=== PATIENT | male | born 1950 | race Caucasian/White ===

== ENCOUNTER 2019-10-04 21:37 | Emergency (ER) | payer MEDICARE, MEDICAID ==
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
[2019-10-05] MEDS ORDERED: Insulin Regular, Human 100 Units/ML 3 ML Vial IV ONE (00:40)
[2019-10-05] MEDS ORDERED: 50% Dextrose in Water 50 ML Syringe IVPUSH ONE (00:41)
[2019-10-05] MEDS ORDERED: Sodium Polystyrene Sulfonate 15 GM/60 ML Susp 60 ML Bot PO ONE (00:42)
[2019-10-05] MEDS ORDERED: cefTRIAXone 1 GM in Sodium Chloride 0.9% 100 ML IV ONE (00:43)
[2019-10-05] MEDS ORDERED: SODIUM CHLORIDE 0.9% IV ONE (00:45)
[2019-10-05] MEDS ORDERED: GENTAMICIN IV ONE (00:45)
[2019-10-05] MEDS ORDERED: Sodium Chloride 0.9% 100 ML ONE (01:55)
[2019-10-05] MEDS ORDERED: Gentamicin 40 MG/ML 2 ML Vial ONE ×2 (01:55→03:02)
--- NOTE | 2019-10-05 07:14 | CR ---
Chest: Portable view of the chest was obtained. Comparison: Prior chest x-ray of 02/11/18. Heart is mildly enlarged. Upper mediastinum is normal. Pulmonary vessels show slight vascular congestion, this may be chronic. No acute parenchymal process is appreciated. Degenerative endplate spurring is noted within the spine. Impression: 1. Cardiomegaly and mild pulmonary vascular congestion, this may be chronic. 2. Nothing acute is otherwise appreciated on portable chest x-ray. Diagnostic code #2 This report was dictated in MDT
== END 2019-10-05 03:25 ==
LOC: SUPCPDRO 21:37 → JD.ED 21:37
DX: E87.5 Hyperkalemia (principal); N39.0 Urinary tract infection, site not specified; I10 Essential (primary) hypertension; Z20.828 Contact with and (suspected) exposure to other viral communicable diseases; Z79.899 Other long term (current) drug therapy
CPT/HCPCS: 36415; 71045; 80053; 81001; 85025; 87040; 87086; 87088; 87186; 93005; 96365; 96367; 96375; 99285; A9270; J0696; J1580; J1815; J7050; U0002; 93010; 99284

== ENCOUNTER 2019-10-09 16:40 | Emergency (ER) | payer MEDICARE ==
[2019-10-09] MEDS ORDERED: Sodium Chloride 0.9% 10 ML Syringe FLUSH PRN (17:03)
[2019-10-09] MEDS ORDERED: Linezolid 600 MG in Premix Bag 1 BAG IV ONE (19:57)
--- NOTE | 2019-10-09 20:26 | CR ---
Chest: Portable view of the chest was obtained. Comparison: Prior chest x-ray of 10/04/19. Findings: Heart size and mediastinum are within normal limits for portable technique. Lung markings are slightly increased within the right lung base. Difficult to exclude mild focal bronchitis. Lungs otherwise are clear. Scoliosis is noted within the spine. No acute osseous finding is seen. Impression: 1. Possible mild right lower lobe bronchitis. 2. Other findings believed to be stable. Diagnostic code #3 This report was dictated in MDT
--- NOTE | 2019-10-09 21:07 | EDM.PDOC ---
ED HPI GENERAL MEDICAL PROBLEM - General Chief Complaint: Genitourinary Problem Stated Complaint: FEVER AND ABNORMAL LABS Time Seen by Provider: 10/09/19 17:07 Source of Information: Reports: Patient History Limitations: Reports: No Limitations - History of Present Illness INITIAL COMMENTS - FREE TEXT/NARRATIVE: Patient is a 69-year-old male sent by his primary care provider with complaints of ongoing fever and an elevated white count. Patient was seen in our emergency department on 03 October for fever. He was diagnosed with urinary tract infection secondary to chronic indwelling Fuentes catheter. He was discharged back to the half-way facility with orders for intravenous gentamicin and Rocephin. He has been receiving these medications as prescribed. Repeat CBC was done today and showed his WBCs have increased since treatment began. Patient also continues to run low-grade fevers. Primary care provider reports a temperature of 100.0. On triage temperature was 99.0. Patient is in end-stage renal failure with chronic hemodialysis. He did dialyze today. He states that he is feeling well and has no complaints. He does verbalize that he has continued to run fevers at the half-way facility. Denies any nausea, vomiting, or chills. - Related Data Allergies Allergy/AdvReac Type Severity Reaction Status Date / Time No Known Allergies Allergy Verified 10/09/19 17:09 Home Meds: Home Meds Sodium Bicarbonate 650 mg PO BID 02/11/18 [History] amLODIPine Besylate [Amlodipine Besylate] 5 mg PO DAILY 02/11/18 [History] Melatonin 3 mg PO BEDTIME 10/04/19 [History] Nicotine [Nicoderm CQ] 14 mg TOP DAILY 10/04/19 [History] Sertraline [Zoloft] 25 mg PO DAILY 10/04/19 [History] Sevelamer Carbonate [Renvela] 2 tab PO TID 10/04/19 [History] Acetaminophen 650 mg PO 6XDAY PRN 10/09/19 [History] Calcium Carbonate [Antacid] 500 mg PO QID PRN 10/09/19 [History] Ipratropium/Albuterol Sulfate [Iprat-Albut 0.5-3(2.5) mg/3 ml] 1 ampule INH QID PRN 10/09/19 [History] Sennosides/Docusate Sodium [Senna-Docusate Sodium Tablet] 2 tab PO BID PRN 10/09/19 [History] Past Medical History HEENT History: Reports: Impaired Vision Other HEENT History: reading glasses. Cardiovascular History: Reports: Hypertension Genitourinary History: Reports: Dialysis, Retention, Urinary, Other (See Below) Other Genitourinary History: pt has indwelling fuentes catheter. 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 - Infectious Disease History Infectious Disease History: Reports: Chicken Pox, Measles - Past Surgical History Head Surgeries/Procedures: Reports: None HEENT Surgical History: Reports: Tonsillectomy Cardiovascular Surgical History: Reports: Vascular Surgery Male Surgical History: Reports: TURBT-Transurethral Resection of Bladder Tumor Musculoskeletal Surgical History: Reports: Amputation Social & Family History - Family History Family Medical History: Noncontributory - Tobacco Use Smoking Status *Q: Current Some Day Smoker Years of Tobacco use: 56 Packs/Tins Daily: 1 Used Tobacco, but Quit: No - Caffeine Use Caffeine Use: Reports: Coffee - Recreational Drug Use Recreational Drug Use: No - Living Situation & Occupation Living situation: Reports: , with Family (Son + 3 grandchildren) Occupation: Retired ED ROS GENERAL - Review of Systems Review Of Systems: See Below Constitutional: Reports: Fever. Denies: Chills, Weakness, Decreased Appetite HEENT: Reports: No Symptoms Respiratory: Reports: No Symptoms. Denies: Shortness of Breath, Cough Cardiovascular: Reports: No Symptoms Endocrine: Reports: No Symptoms GI/Abdominal: Reports: No Symptoms. Denies: Abdominal Pain, Nausea, Vomiting : Reports: No Symptoms Musculoskeletal: Reports: No Symptoms Skin: Reports: No Symptoms Neurological: Reports: No Symptoms. Denies: Confusion, Dizziness, Headache Psychiatric: Reports: No Symptoms Hematologic/Lymphatic: Reports: No Symptoms Immunologic: Reports: No Symptoms ED EXAM, RENAL/ - Physical Exam Exam: See Below Exam Limited By: No Limitations General Appearance: Alert, WD/WN, No Apparent Distress Respiratory/Chest: No Respiratory Distress, No Accessory Muscle Use, Chest Non- Tender, Rhonchi (Scattered throughout left) Cardiovascular: Normal Peripheral Pulses, Regular Rate, Rhythm, No Edema, No Gallop, No JVD, No Murmur, No Rub (Male) Exam: Other (Chronic indwelling Fuentes catheter. No redness or drainage from the penis.) Extremities: Other (Left above-knee the elbow amputation. Dialysis fistula to left upper arm.) Neurological: Alert, Oriented, CN II-XII Intact, Normal Cognition, Normal Gait, Normal Reflexes, No Motor/Sensory Deficits Psychiatric: Normal Affect, Normal Mood Skin Exam: Warm, Dry, Intact, Normal Color, No Rash Course - Vital Signs Last Recorded V/S: Last Vital Signs Temp 99 F 10/09/19 17:03 Pulse 78 10/09/19 17:03 Resp 20 10/09/19 17:03 BP 199/87 H 10/09/19 17:03 Pulse Ox 93 L 10/09/19 17:03 - Orders/Labs/Meds Labs: Laboratory Tests 10/09/19 10/09/19 10/09/19 Range/Units 17:38 18:00 18:00 WBC 25.16 H (4.23-9.07) K/mm3 RBC 3.08 L (4.63-6.08) M/mm3 Hgb 9.3 L (13.7-17.5) gm/dl Hct 28.9 L (40.1-51.0) % MCV 93.8 H (79.0-92.2) fl MCH 30.2 (25.7-32.2) pg MCHC 32.2 (32.2-35.5) g/dl RDW Std Deviation 45.7 H (35.1-43.9) fL Plt Count 261 (163-337) K/mm3 MPV 10.2 (9.4-12.3) fl Neut % (Auto) 86.8 H (34.0-67.9) % Lymph % (Auto) 6.0 L (21.8-53.1) % [place] % (Auto) 6.5 (5.3-12.2) % Eos % (Auto) 0 L (0.8-7.0) Baso % (Auto) 0.2 (0.1-1.2) % Neut # (Auto) 21.83 H (1.78-5.38) K/mm3 Lymph # (Auto) 1.52 (1.32-3.57) K/mm3 [place] # (Auto) 1.63 H (0.30-0.82) K/mm3 Eos # (Auto) 0.00 L (0.04-0.54) K/mm3 Baso # (Auto) 0.06 (0.01-0.08) K/mm3 Manual Slide Review Abnormal smear Sodium 141 (136-145) mEq/L Potassium 3.2 L D (3.5-5.1) mEq/L Chloride 101 (98-107) mEq/L Carbon Dioxide 32 (21-32) mEq/L Anion Gap 11.2 (5-15) BUN 17 D (7-18) mg/dL Creatinine 3.2 H D (0.7-1.3) mg/dL Est Cr Clr Drug Dosing 19.70 mL/min Estimated GFR (MDRD) 19 (>60) mL/min BUN/Creatinine Ratio 5.3 L (14-18) Glucose 108 (83-115) mg/dL Lactic Acid (0.4-2.0) mmol/L Calcium 8.9 (8.5-10.1) mg/dL Total Bilirubin 0.4 (0.2-1.0) mg/dL AST 7 L (15-37) U/L ALT 10 L (16-63) U/L Alkaline Phosphatase 96 (46-116) U/L C-Reactive Protein 23.1 H* (<1.0) mg/dL Total Protein 6.5 (6.4-8.2) g/dl Albumin 2.3 L (3.4-5.0) g/dl Globulin 4.2 gm/dL Albumin/Globulin Ratio 0.6 L (1-2) Urine Color (Yellow) Urine Appearance (Clear) Urine pH (5.0-8.0) Ur Specific [place] (1.005-1.030) Urine Protein (Negative) Urine Glucose (UA) (Negative) Urine Ketones (Negative) Urine Occult Blood (Negative) Urine Nitrite (Negative) Urine Bilirubin (Negative) Urine Urobilinogen (0.2-1.0) Ur Leukocyte Esterase (Negative) Urine RBC (0-5) /hpf Urine WBC (0-5) /hpf Ur Squamous Epith Cells (0-5) /hpf Urine Bacteria (FEW) /hpf Urine Mucus (FEW) /hpf SARS Virus RNA (PCR) Negative (NEGATIVE) 10/09/19 10/09/19 Range/Units 18:00 19:14 WBC (4.23-9.07) K/mm3 RBC (4.63-6.08) M/mm3 Hgb (13.7-17.5) gm/dl Hct (40.1-51.0) % MCV (79.0-92.2) fl MCH (25.7-32.2) pg MCHC (32.2-35.5) g/dl RDW Std Deviation (35.1-43.9) fL Plt Count (163-337) K/mm3 MPV (9.4-12.3) fl Neut % (Auto) (34.0-67.9) % Lymph % (Auto) (21.8-53.1) % [place] % (Auto) (5.3-12.2) % Eos % (Auto) (0.8-7.0) Baso % (Auto) (0.1-1.2) % Neut # (Auto) (1.78-5.38) K/mm3 Lymph # (Auto) (1.32-3.57) K/mm3 [place] # (Auto) (0.30-0.82) K/mm3 Eos # (Auto) (0.04-0.54) K/mm3 Baso # (Auto) (0.01-0.08) K/mm3 Manual Slide Review Sodium (136-145) mEq/L Potassium (3.5-5.1) mEq/L Chloride (98-107) mEq/L Carbon Dioxide (21-32) mEq/L Anion Gap (5-15) BUN (7-18) mg/dL Creatinine (0.7-1.3) mg/dL Est Cr Clr Drug Dosing mL/min Estimated GFR (MDRD) (>60) mL/min BUN/Creatinine Ratio (14-18) Glucose (83-115) mg/dL Lactic Acid 1.2 (0.4-2.0) mmol/L Calcium (8.5-10.1) mg/dL Total Bilirubin (0.2-1.0) mg/dL AST (15-37) U/L ALT (16-63) U/L Alkaline Phosphatase (46-116) U/L C-Reactive Protein (<1.0) mg/dL Total Protein (6.4-8.2) g/dl Albumin (3.4-5.0) g/dl Globulin gm/dL Albumin/Globulin Ratio (1-2) Urine Color Yellow (Yellow) Urine Appearance Cloudy H (Clear) Urine pH >=9.0 H (5.0-8.0) Ur Specific [place] 1.015 (1.005-1.030) Urine Protein 3+ H (Negative) Urine Glucose (UA) Trace H (Negative) Urine Ketones Negative (Negative) Urine Occult Blood 3+ H (Negative) Urine Nitrite Negative (Negative) Urine Bilirubin Negative (Negative) Urine Urobilinogen 0.2 (0.2-1.0) Ur Leukocyte Esterase Trace H (Negative) Urine RBC 40-50 H (0-5) /hpf Urine WBC 5-10 H (0-5) /hpf Ur Squamous Epith Cells 0-5 (0-5) /hpf Urine Bacteria Rare (FEW) /hpf Urine Mucus Rare (FEW) /hpf SARS Virus RNA (PCR) (NEGATIVE) Meds: Medications Discontinued Medications Generic Name Dose Route Start Last Admin Trade Name Omarq PRN Reason Stop Dose Admin Acetaminophen 650 mg 10/09/19 21:55 Tylenol PO 10/09/19 21:56 NOW ONE Acetaminophen Confirm 10/09/19 21:57 Tylenol Administered 10/09/19 21:58 Dose 325 mg .ROUTE .STK-MED ONE Linezolid 600 mg/ Premix 300 mls @ 300 mls/hr 10/09/19 19:57 10/09/19 20:28 IV 10/09/19 20:56 300 mls/hr ONETIME ONE Administration Potassium Chloride 40 meq 10/09/19 21:08 10/09/19 21:39 Klor-Con M20 PO 10/09/19 21:09 40 meq ONETIME ONE Administration Sodium Chloride 10 ml 10/09/19 17:03 10/09/19 17:36 Saline Flush FLUSH 10 ml ASDIRECTED PRN Administration Keep Vein Open - Re-Assessments/Exams Free Text/Narrative Re-Assessment/Exam: 10/09/19 21:11 hemotology was significant for WBC elevated at 25.16. This is up from 22.7 on 03 October. Hemoglobin found to be low at 9.3, potassium low at 3.2, creatinine elevated at 3.2, CRP elevated at 23.1. Urinalysis difficult for a pH greater than 9.0, 3+ protein, trace glucose, 3+ occult blood, trace leukocyte esterase, 40-50 RBCs, 5-10 WBCs coronavirus screen was found to be negative. Patient has been started on linezolid antibiotic. I did call and speak to the hospitalist at [facility] in [place], . He accepted the patient for transfer to [place]. Request that we replace potassium with 40 mEq of oral KCl. Rachele nt will be transported via ground ambulance. Departure - Departure Time of Disposition: 21:11 Disposition: DC/Tfer to Acute Hospital 02 Condition: Good Clinical Impression: UTI, Urinary tract infectious disease - Discharge Information Referrals: Bala Huffman MD [Primary Care Provider] - Forms: ED Department Discharge Sepsis Event Note (ED) - Evaluation Sepsis Screening Result: No Definite Risk
[2019-10-09] MEDS ORDERED: Potassium Chloride 20 MEQ Tab.ER PO ONE (21:08)
[2019-10-09] MEDS ORDERED: Acetaminophen 325 MG Tab PO ONE (21:55)
[2019-10-09] MEDS ORDERED: Acetaminophen 325 MG Tab ONE (21:57)
== END 2019-10-09 22:00 ==
LOC: JD.ED 16:40
DX: N39.0 Urinary tract infection, site not specified (principal); I10 Essential (primary) hypertension; F17.210 Nicotine dependence, cigarettes, uncomplicated; Z89.512 Acquired absence of left leg below knee; Z99.2 Dependence on renal dialysis; Z79.899 Other long term (current) drug therapy; Z20.828 Contact with and (suspected) exposure to other viral communicable diseases
CPT/HCPCS: 36415; 71045; 80053; 81001; 83605; 85025; 86140; 87040; 87086; 96365; 99285; A9270; J2020; U0002

== ENCOUNTER 2019-12-14 00:55 | Emergency (ER) | payer MEDICARE ==
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
== END 2019-12-14 05:20 | disposition home or self-care (01) ==
LOC: JD.ED 00:55
DX: E83.42 Hypomagnesemia (principal); R50.9 Fever, unspecified; I12.0 Hypertensive chronic kidney disease with stage 5 chronic kidney disease or end stage renal disease; N18.6 End stage renal disease; Z99.2 Dependence on renal dialysis; Z79.899 Other long term (current) drug therapy; Z87.891 Personal history of nicotine dependence
CPT/HCPCS: 36415; 80053; 83735; 85007; 85027; 87040; 87086; 99283; U0002

== ENCOUNTER 2020-04-22 15:58 | Emergency (ER) | payer MEDICARE, MEDICAID ==
[2020-04-22] MEDS ORDERED: Lidocaine 1% 10 ML MDV INJECT ONE (16:24)
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
--- NOTE | 2020-04-22 17:13 | CT ---
Head CT Technique: Multiple axial sections through the brain were obtained. Intravenous contrast was not utilized. Reconstructed coronal and sagittal images were obtained. Comparison: No prior intracranial imaging is available. Findings: Ventricles along the basal cisterns and sulci over the convexities are mildly prominent. Fairly prominent diminished density is noted within the periventricular and subcortical white matter which is compatible with small vessel ischemic demyelination change. Old lacunar infarcts are scattered within the basal ganglia. Atherosclerotic calcification is seen within the vertebral vessels and within the carotid siphon. No evidence of intracranial hemorrhage is seen. No midline shift is seen. Bone window settings were reviewed which show the mastoid sinuses to appear clear. Mild mucosal thickening is seen within the ethmoid sinuses which is most likely chronic. No acute calvarial abnormality is otherwise appreciated. Impression: 1. Senescent change as noted above. 2. Slight sinus findings which are believed to be incidental. 3. Nothing acute is definitely appreciated on noncontrast head CT exam. Diagnostic code #2
[2020-04-22] MEDS ORDERED: Diphtheria,Pertussis(Acell),Tetanus Vaccine 0.5 ML Syringe IM ONE (17:52)
== END 2020-04-22 18:00 | disposition home or self-care (01) ==
LOC: JD.ED 15:58
DX: R55 Syncope and collapse (principal); S01.111A Laceration without foreign body of right eyelid and periocular area, initial encounter; S40.812A Abrasion of left upper arm, initial encounter; S60.511A Abrasion of right hand, initial encounter; I10 Essential (primary) hypertension; J44.9 Chronic obstructive pulmonary disease, unspecified; Z99.2 Dependence on renal dialysis; Z23 Encounter for immunization; Z79.899 Other long term (current) drug therapy; W01.0XXA Fall on same level from slipping, tripping and stumbling without subsequent striking against object, initial encounter
CPT/HCPCS: 12011; 36415; 70450; 80053; 82962; 83735; 85025; 90471; 90715; 93005; 99284; J2001; 93010; 99283

== ENCOUNTER 2020-10-10 11:22 | Emergency (ER) | payer MEDICARE, MEDICAID ==
[2020-10-10] MEDS ORDERED: Acetaminophen 325 MG Tab PO PRN (11:41)
[2020-10-10] MEDS ORDERED: Sodium Chloride 0.9% 10 ML Syringe FLUSH PRN (11:41)
--- NOTE | 2020-10-10 11:42 | EDM.PDOC ---
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 response team responding. Patient brought to the ED for further evaluation identified to be markedly febrile. Investigations suggest likely urinary tract infection as a source of his sepsis with marked leukocytosis and left shift. He will likely need hemodialysis tomorrow on a urgent basis. Sepsis Event Note (ED) - Evaluation Sepsis Screening Result: Sepsis Risk - Focused Exam Vital Signs: Vital Signs Temp Temp Pulse Resp BP Pulse Ox 10/10/20 15:55 37.1 C 73 18 166/77 H 97 10/10/20 13:45 37.1 C 80 20 165/109 H 89 L 10/10/20 11:59 37.6 C 10/10/20 11:33 37.6 C 10/10/20 11:23 37.1 C 98 25 H 196/87 H 93 L - My Orders Last 24 Hours: My Active Orders 10/10/20 11:40 EKG Documentation Completion [RC] STAT 10/10/20 11:41 Peripheral IV Care [RC] . DIRECTED Acetaminophen [TylenoL] 650 mg PO Q4H PRN Sodium Chloride 0.9% [Saline Flush] 10 ml FLUSH ASDIRECTED PRN Blood Culture x2 Reflex Set [OM.PC] Stat Peripheral IV Insertion Adult [OM.PC] Stat 10/10/20 12:15 CULTURE BLOOD [BC] Stat 10/10/20 12:25 CULTURE BLOOD [BC] Stat 10/10/20 13:16 CORONAVIRUS COVID-19 LIONEL [MOLEC] Stat 10/10/20 14:45 Sodium Chloride 0.9% [Normal Saline] 1,000 ml IV ASDIRECTED 10/10/20 14:48 Remove Fuentes Catheter [Urinary Catheter Removal] [RC] PER UNIT ROUTINE 10/10/20 14:49 Urinary Catheter Assessment [RC] ASDIRECTED 10/10/20 15:00 Fuentes Catheter Insertion [Insert Urinary Catheter] [OM.PC] Q24H - Assessment/Plan Last 24 Hours: My Active Orders 10/10/20 11:40 EKG Documentation Completion [RC] STAT 10/10/20 11:41 Peripheral IV Care [RC] . DIRECTED Acetaminophen [TylenoL] 650 mg PO Q4H PRN Sodium Chloride 0.9% [Saline Flush] 10 ml FLUSH ASDIRECTED PRN Blood Culture x2 Reflex Set [OM.PC] Stat Peripheral IV Insertion Adult [OM.PC] Stat 10/10/20 12:15 CULTURE BLOOD [BC] Stat 10/10/20 12:25 CULTURE BLOOD [BC] Stat 10/10/20 13:16 CORONAVIRUS COVID-19 LIONEL [MOLEC] Stat 10/10/20 14:45 Sodium Chloride 0.9% [Normal Saline] 1,000 ml IV ASDIRECTED 10/10/20 14:48 Remove Fuentes Catheter [Urinary Catheter Removal] [RC] PER UNIT ROUTINE 10/10/20 14:49 Urinary Catheter Assessment [RC] ASDIRECTED 10/10/20 15:00 Fuentes Catheter Insertion [Insert Urinary Catheter] [OM.PC] Q24H
[2020-10-10] MEDS ORDERED: Sodium Chloride 0.9% 1,000 ML IV SCH ×2 (12:15→14:45)
--- NOTE | 2020-10-10 13:14 | CR ---
Chest: Frontal view of the chest was obtained. Comparison: Prior chest x-ray 10/09/19 and 10/04/19. Heart size appears slightly enlarged. Upper mediastinum is normal. Lung markings are slightly increased but appear to be stable. No acute parenchymal change is seen. Surgical clips are seen within the soft tissues of the left upper extremity. Scattered degenerative change is seen within the spine with mild scoliosis. Impression: 1. Findings as described above. 2. Nothing acute is seen. Diagnostic code #2
[2020-10-10] MEDS ORDERED: Cefepime 1 GM in Premix Bag 1 BAG IV ONE (13:36)
[2020-10-10] MEDS ORDERED: Lidocaine 2% Jelly 10 ML Urojet MUCMEM ONE (14:49)
[2020-10-10] MEDS ORDERED: Metoclopramide 10 MG/2 ML SDV ONE (16:06)
== END 2020-10-10 16:10 ==
LOC: JD.ED 11:22
DX: T83.510A Infection and inflammatory reaction due to cystostomy catheter, initial encounter (principal); E87.2 Acidosis; I11.0 Hypertensive heart disease with heart failure; I50.9 Heart failure, unspecified; D72.828 Other elevated white blood cell count; C67.9 Malignant neoplasm of bladder, unspecified; J44.9 Chronic obstructive pulmonary disease, unspecified; Z99.2 Dependence on renal dialysis; F17.210 Nicotine dependence, cigarettes, uncomplicated; Z79.899 Other long term (current) drug therapy; Z20.822 Contact with and (suspected) exposure to COVID-19
CPT/HCPCS: 36415; 51705; 71045; 80053; 81001; 83605; 83735; 83880; 84484; 85007; 85027; 85610; 85730; 86140; 87040; 87086; 87088; 87186; 93005; 94762; 96365; 99285; A9270; J0692; J7030; U0002; 93010

== ENCOUNTER 2021-03-27 12:54 | Emergency (ER) | payer MEDICARE, MEDICAID ==
[2021-03-27] MEDS ORDERED: Sodium Chloride 0.9% 10 ML Syringe FLUSH PRN (14:01)
--- NOTE | 2021-03-27 14:27 | CR ---
Chest: Portable view of the chest was obtained. Comparison: Prior chest x-ray of 10/10/20. Heart size and mediastinum are normal. Lungs are somewhat overpenetrated with no definite acute parenchymal change seen. Mild degenerative change is seen within the spine. Impression: 1. Lungs are overpenetrated with no acute parenchymal change being definitely seen. 2. Other chronic findings as noted above. Diagnostic code #2
[2021-03-27 15:30] LABS: CORONAVIRUS COVID-19 NAA NEGATIVE (NEGATIVE)
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
[2021-03-27] MEDS ORDERED: Oseltamivir 30 MG Cap PO STA (17:20)
== END 2021-03-27 21:51 | disposition home or self-care (01) ==
LOC: JD.ED 12:54
DX: J10.1 Influenza due to other identified influenza virus with other respiratory manifestations (principal); I10 Essential (primary) hypertension; I25.10 Atherosclerotic heart disease of native coronary artery without angina pectoris; J44.9 Chronic obstructive pulmonary disease, unspecified; Z72.0 Tobacco use; Z79.899 Other long term (current) drug therapy; Z20.822 Contact with and (suspected) exposure to COVID-19
CPT/HCPCS: 0240U; 36415; 71045; 80053; 83735; 85025; 86140; 99285; A9270

== ENCOUNTER 2022-06-27 10:42 | Day surgery (SDC) | payer MEDICARE, MEDICAID ==
[~2022-06-27 10:42] MED LIST: Lactated Ringers 1,000 ML IV SCH; Lidocaine 1%/Sod Bicarbonate in NS 8.4% 1 ML Syringe IDERM PRN; Sodium Chloride 0.9% 10 ML Syringe FLUSH PRN; Sodium Chloride 0.9% 10 ML Syringe FLUSH SCH
[2022-06-27] MEDS ORDERED: Propofol 200 MG/20 ML SDV ONE (13:18)
[2022-06-27] MEDS ORDERED: Lidocaine 1% 4 ML ONE (13:32)
[2022-06-27] MEDS ORDERED: Lactated Ringers 1,000 ML ONE (13:32)
== END 2022-06-27 15:04 | disposition home or self-care (01) ==
LOC: JD.SDS 10:42
PROVIDERS: ATTEND Surgery
DX: Z12.11 Encounter for screening for malignant neoplasm of colon (principal); Z53.09 Procedure and treatment not carried out because of other contraindication; I25.10 Atherosclerotic heart disease of native coronary artery without angina pectoris; I12.0 Hypertensive chronic kidney disease with stage 5 chronic kidney disease or end stage renal disease; N18.6 End stage renal disease; D63.1 Anemia in chronic kidney disease; J44.9 Chronic obstructive pulmonary disease, unspecified; N25.81 Secondary hyperparathyroidism of renal origin; F17.210 Nicotine dependence, cigarettes, uncomplicated; Z99.2 Dependence on renal dialysis; Z86.010 Personal history of colon polyps; Z79.82 Long term (current) use of aspirin; Z79.899 Other long term (current) drug therapy
CPT/HCPCS: 36415; 80048; 93005; G0104; J2704; J7120; J3490

== ENCOUNTER 2023-05-09 09:43 | Emergency (ER) | payer MEDICARE, MEDICAID ==
[2023-05-09] MEDS: Etomidate 2 MG/ML 20 ML SDV IVPUSH ONE (10:03)
[2023-05-09] MEDS: Rocuronium 50 MG/5 ML Vial IVPUSH ONE ×2 (10:04→14:13)
[2023-05-09] MEDS ORDERED: fentaNYL 2,500 MCG in Sodium Chloride 0.9% 200 ML IV SCH (10:15)
[2023-05-09] MEDS: EPINEPHrine 1:10,000 1 MG/10 ML Syringe IVPUSH ONE (10:17)
[2023-05-09 10:28] LABS: BASOPHILS ABSOLUTE AUTO 0.1 K/mm3 (0.0-0.2); BASOPHILS PERCENT AUTO 0.8 % (0.0-1.0); EOSINOPHILS ABSOLUTE AUTO 0.2 K/mm3 (0.0-0.4); EOSINOPHILS PERCENT AUTO 1.2 % (0.0-6.0); HEMOGLOBIN 10.3 gm/dl (14.0-18.0); IMMATURE GRAN ABSOLUTE AUTO 0.11 K/mm3 (0.00-0.05); IMMATURE GRAN PERCENT AUTO 0.7 % (0.0-0.4); LYMPHOCYTES PERCENT AUTO 26.1 % (24.0-44.0); MEAN CORPUSCULAR HEMOGLOBIN 31.6 pg (28.0-32.0); MEAN CORPUSCULAR HGB CONC 30.3 g/dl (32.0-36.0); MEAN PLATELET VOLUME 10.1 fl (9.4-12.4); MONOCYTES ABSOLUTE AUTO 0.9 K/mm3 (0.0-0.8); MONOCYTES PERCENT AUTO 5.7 % (0.0-8.0); NEUTROPHILS ABSOLUTE AUTO 10.1 K/mm3 (1.8-7.7); NEUTROPHILS PERCENT AUTO 65.5 % (41.0-71.0); PLATELET COUNT,PLT 199 K/mm3 (150-400); RED BLOOD CELL COUNT 3.26 M/mm3 (4.52-5.90); WHITE BLOOD CELL COUNT,WBC 15.34 K/mm3 (3.9-11.3)
[2023-05-09 10:31] LABS: MEAN CORPUSCULAR VOLUME 104.3 fl (83.0-99.0)
[2023-05-09] MEDS: fentaNYL 2,500 MCG in Sodium Chloride 0.9% 200 ML IV SCH (10:33)
[2023-05-09] MEDS: propofoL 100 ML IV SCH (10:33)
[2023-05-09] MEDS ORDERED: LORazepam 2 MG/ML SDV IM ONE (10:48)
[2023-05-09 10:51] LABS: BICARBONATE,ARTERIAL 25.3 meq/L (22.0-26.0); PCO2 ARTERIAL 47.3 mmHg (35.0-45.0)
[2023-05-09 10:53] LABS: A/G RATIO 0.4 (1-2); ALANINE AMINOTRANSFERASE,ALT 8 U/L (16-63); ALBUMIN 1.8 g/dl (3.4-5.0); ALKALINE PHOSPHATASE 72 U/L (46-116); ANION GAP 15.9 (5-15); ASPARTATE AMNIOTRANSFERASE,AST 15 U/L (15-37); BILIRUBIN TOTAL 0.6 mg/dL (0.2-1.0); BLOOD UREA NITROGEN,BUN 5 mg/dL (7-18); BUN/CREATININE RATIO 1.5 (14-18); C-REACTIVE PROTEIN 9.2 mg/dL (<1.0); CALCIUM 8.3 mg/dL (8.5-10.1); CARBON DIOXIDE,CO2 25 mEq/L (21-32); CHLORIDE,CL 102 mEq/L (98-107); CREATININE 3.4 mg/dL (0.7-1.3); ESTIMATED GFR 18 mL/min (>60); GLUCOSE RANDOM 116 mg/dL (70-99); LIPASE 13 U/L (16-77); POTASSIUM,K 3.9 mEq/L (3.5-5.1); PROTEIN TOTAL,TP 5.9 g/dl (6.4-8.2); SODIUM,NA 139 mEq/L (136-145); TROPONIN I HIGH SENSITIVITY 26 pg/mL (<=76)
[2023-05-09] MEDS: LORazepam 2 MG/ML SDV IM ONE (11:00)
[2023-05-09 11:29] LABS: BARBITURATE SCREEN,URINE NEGATIVE (CUTOFF=200); BENZODIAZEPINES SCREEN,URINE NEGATIVE (CUTOFF=150); BUPRENORPHINE SCREEN,URINE NEGATIVE (CUTOFF=10); METHADONE SCREEN, URINE NEGATIVE (CUT0FF=200); METHAMPHETAMINES SCREEN, URINE NEGATIVE (CUTOFF=500); OXYCODONE SCREEN,URINE NEGATIVE (CUT0FF=100); THC SCREEN,URINE 20 NG/ML NEGATIVE (CUTOFF=50)
[2023-05-09 11:37] LABS: LACTIC ACID 4.8 mmol/L (0.4-2.0)
[2023-05-09 11:43] LABS: AMPHETAMINES SCREEN, URINE NEGATIVE (CUTOFF=500)
[2023-05-09 11:53] LABS: APPEARANCE,URINE CLOUDY (Clear); BILIRUBIN,URINE NEGATIVE (Negative); COLOR,URINE YELLOW (Yellow); GLUCOSE,URINE NEGATIVE (Negative); KETONES,URINE NEGATIVE (Negative); LEUKOCYTE ESTERASE,URINE 2+ (Negative); NITRITE,URINE NEGATIVE (Negative); OCCULT BLOOD,URINE 1+ (Negative); PH,URINE >=9.0 (5.0-8.0); PROTEIN,URINE 3+ (Negative); UROBILINOGEN,URINE 0.2 (0.2-1.0)
[2023-05-09] MEDS: Albuterol/Ipratropium 3.0-0.5 MG/3 ML Neb Soln NEB SCH (11:55)
[2023-05-09 12:03] LABS: AMORPHOUS SEDIMENT,URINE MODERATE /hpf (NOT SEEN); BACTERIA,URINE MANY /hpf (FEW); MUCUS,URINE MODERATE /hpf (FEW); WBC,URINE 50-75 /hpf (0-5)
[2023-05-09 12:15] LABS: CORONAVIRUS COVID-19 NAA POSITIVE (NEGATIVE); INFLUENZA A NAA NEGATIVE (NEGATIVE); RESPIRATORY SYNCYTIAL VIR NAA NEGATIVE (NEGATIVE)
[2023-05-09] MEDS: Sodium Chloride 0.9% 1,000 ML IV ONE ×3 (13:10→14:30)
[2023-05-09] MEDS: LORazepam 2 MG/ML SDV IVPUSH ONE (13:24)
[2023-05-09] MEDS: LORazepam 2 MG/ML SDV ONE ×3 (13:25)
[2023-05-09] MEDS: fentaNYL 100 MCG/2 ML SDV IVPUSH ONE (13:39)
[2023-05-09] MEDS: levETIRAcetam 500 MG/5 ML SDV ONE (15:51)
[2023-05-09] MEDS: levETIRAcetam 2,000 MG in Sodium Chloride 0.9% 100 ML IV ONE (15:57)
[2023-05-09 16:17] LABS: BASE EXCESS ARTERIAL -0.6 (-2-2.0); BICARBONATE,ARTERIAL 23.8 meq/L (22.0-26.0); O2 SATURATION ARTERIAL 89.2 % (96.0-97.0); PCO2 ARTERIAL 40.7 mmHg (35.0-45.0)
[2023-05-09] MEDS: Norepinephrine 4 MG in Dextrose 5% in Water 246 ML IV SCH (17:18)
[2023-05-09] MEDS: Albuterol/Ipratropium 3.0-0.5 MG/3 ML Neb Soln NEB ONE (17:29)
[2023-05-09] MEDS: Albuterol/Ipratropium 3.0-0.5 MG/3 ML Neb Soln ONE (17:30)
== END 2023-05-09 18:15 ==
LOC: JD.ED 09:43
DX: U07.1 COVID-19 (principal); J96.01 Acute respiratory failure with hypoxia; R40.2432 Glasgow coma scale score 3-8, at arrival to emergency department; G43.901 Migraine, unspecified, not intractable, with status migrainosus; I10 Essential (primary) hypertension; I25.10 Atherosclerotic heart disease of native coronary artery without angina pectoris; J45.909 Unspecified asthma, uncomplicated; Z79.82 Long term (current) use of aspirin; Z79.899 Other long term (current) drug therapy; W19.XXXA Unspecified fall, initial encounter
CPT/HCPCS: 0241U; 31500; 36415; 36556; 36600; 70450; 71045; 72125; 80053; 80306; 80307; 81001; 82140; 82803; 82947; 83605; 83690; 83880; 84484; 85025; 86140; 87040; 93005; 94640; 96361; 96365; 96372; 96375; 99285; J0171; J1953; J2060; J2704; J3010; J3490; J7030; J7050; J7060; 93010; J7620-GY